=== PATIENT | male | born 1950 | race Caucasian/White ===

== ENCOUNTER 2017-01-06 02:10 | Emergency (ER) | payer OTHER ==
[2017-01-06] MEDS ORDERED: GLUCOPHAGE500 M3 PO (02:26)
[2017-01-06] MEDS ORDERED: PROSCAR5 M1 PO (02:26)
[2017-01-06] MEDS ORDERED: COZAAR50 M1 PO (02:26)
[2017-01-06] MEDS ORDERED: ENBREL50 MG/1 M1 SC (02:27)
[2017-01-06] MEDS ORDERED: SYNTHROID112 MC1 PO (02:27)
[2017-01-06] MEDS ORDERED: ONGLYZA2.5 M1 PO (02:28)
[2017-01-06] MEDS ORDERED: CALCIUM CARBON600 M2 PO (02:28)
[2017-01-06] MEDS ORDERED: VITAMIN D2000 UNI1 PO (02:28)
[2017-01-06] MEDS ORDERED: ASPIRIN81 M1 PO (02:28)
[2017-01-06] MEDS ORDERED: CENTRUM COMPLE1 EAC1 PO (02:29)
[2017-01-06] MEDS ORDERED: TRULICITY1.5 MG/0.5 (02:29)
[2017-01-06 02:44] LABS: BASO % 0.4 % (0-2); EOS % 2.3 % (0-7); EOSINOPHIL ABSOLUTE COUNT 0.2 tho/cmm (0.0-0.7); HCT-HEMATOCRIT 42.1 % (36.0-53.5); HGB-HEMOGLOBIN 15.2 gm/dl (13.5-17.0); IMMATURE GRANULOCYTES ABSOLUTE 0.04 tho/cmm (0-0.03); IMMATURE GRANULOCYTES PERCENT 0.5 % (0-0.3); LYMPH % 35.2 % (20-45); LYMPH ABSOLUTE COUNT 2.6 tho/cmm (0.8-4.5); MCH (MEAN CORPUSCULAR HGB) 33.2 pg (28.0-32.0); MCHC MEAN CORPUSCULAR HGB CONC 36.1 % (32.0-36.0); MCV (MEAN CELL VOLUME) 91.9 fl (82.0-96.0); MEAN PLATELET VOLUME 9.9 cmc (9.4-12.4); MONO % 11.1 % (0-12); MONOCYTE ABSOLUTE COUNT 0.8 tho/cmm (0.0-1.2); NEUTROPHIL ABSOLUTE COUNT 3.7 tho/cmm (1.6-8.0); NEUTROPHIL-AUTOMATED 3.7 tho/cmm (1.6-8.0); NEUTROPHILS % 50.5 % (40-80); PLATELET COUNT 243 tho/cmm (150-450); RED BLOOD COUNT 4.58 mil/cmm (4.40-5.70); WHITE BLOOD COUNT 7.3 tho/cmm (4.0-10.0)
[2017-01-06 03:08] LABS: ALB/GLOB RATIO 0.9 (0.8-2.0); ALBUMIN 3.7 g/dl (3.5-5.0); ALKALINE PHOSPHATASE 48 U/L (33-138); ALT/SGPT 42 U/L (12-78); ANION GAP 16 mmol/L (0-20); AST/SGOT 22 U/L (10-40); BILIRUBIN,TOTAL 0.5 mg/dl (0.0-1.5); BLOOD UREA NITROGEN 23 mg/dl (6-24); CALCIUM 9.1 mg/dl (8.5-10.5); CARBON DIOXIDE-VENOUS 24 mmol/L (22-32); CHLORIDE 102 mmol/l (96-110); CREATININE 1.08 mg/dl (0.60-1.30); GLUCOSE 224 mg/dL (70-110); LIPASE 231 U/L (73-393); MAGNESIUM 1.9 mg/dl (1.8-2.6); SODIUM 138 mmol/L (135-145); eGFR VALUE FOR BLACK 82 mL/Min
[2017-01-06 03:25] LABS: URINE LEUKOCYTE ESTERASE NEGATIVE (NEG); URINE PROTEIN MODERATE (NEG)
[2017-01-06 03:31] LABS: URINE APPEARANCE CLEAR; URINE BILIRUBIN NEGATIVE (NEG); URINE BLOOD SMALL (NEG); URINE COLOR YELLOW; URINE GLUCOSE (UA) MODERATE (NEG); URINE KETONE NEGATIVE (NEG); URINE NITRITE NEGATIVE (NEG)
[2017-01-06 03:34] LABS: URINE EPITHELIAL CELLS 0-2 /[HPF] (0-10); URINE RBC 0-1 /[HPF] (0-5); URINE WBC 0-1 /[HPF] (0-5)
[2017-01-06] MEDS ORDERED: ZOFRAN4 M2 PO (04:32)
== END 2017-01-06 04:53 ==
LOC: EDMED 02:10
PROVIDERS: Emergency Medicine
DX: E86.0 Dehydration (principal); R11.2 Nausea with vomiting, unspecified; R19.7 Diarrhea, unspecified; I10 Essential (primary) hypertension; E11.9 Type 2 diabetes mellitus without complications
CPT/HCPCS: J2405; J7030